=== PATIENT | male | born 1940 | race Caucasian/White ===

== ENCOUNTER → 2025-02-15 09:41 | Outpatient (REF) | payer MEDICARE, OTHER, SELFPAY ==
[2025-02-15 11:42] LABS: Hemoglobin 8.6 g/dL (13.0-18.0); Mean Corp Hgb Conc. 30.7 g/dL (33.0-37.0); Mean Corpuscular Hgb 31.7 pg (27.0-31.0); Mean Corpuscular Volume 103.3 fL (80.0-94.0); Platelet Count 127 10^3/uL (130-400); Red Blood Cell Count 2.71 10^6/uL (4.70-6.10); Red Cell Dist. Width 16.3 % (11.5-14.5); White Blood Cell Count 4.4 10^3/uL (4.8-10.8)
[2025-02-15 13:11] LABS: TSH Reflex To Free T4 0.78 uIU/ml (0.47-4.68)
[2025-02-15 13:47] LABS: Absolute Neutrophils -Man Diff 2.3 10^3/uL (1.4-6.5); Band Neutrophils 0 % (0-3); Eosinophils 1 % (0-6); Lymphocytes 29 % (20-51); Monocytes 17 % (2-9); Normal RBC Morphology Yes; Platelets Checked Yes; Segmented Neutrophils 54 % (42-75); Total Cells Counted 100
== END ==
LOC: REG 09:41
PROVIDERS: ATTENDING PHYSICIAN Student in an Organized Health Care Education/Training Program
DX: R06.09 Other forms of dyspnea (principal); I48.0 Paroxysmal atrial fibrillation
CPT/HCPCS: 36415; 84443; 85025

== ENCOUNTER → 2025-02-18 11:30 | Outpatient (REF) | payer MEDICARE, OTHER, SELFPAY ==
[2025-02-18 12:24] LABS: Hematocrit 28.2 % (39.0-52.0); Hemoglobin 8.7 g/dL (13.0-18.0); Mean Corp Hgb Conc. 30.9 g/dL (33.0-37.0); Mean Corpuscular Hgb 31.8 pg (27.0-31.0); Mean Corpuscular Volume 102.9 fL (80.0-94.0); Mean Platelet Volume 11.1 fL (7.4-10.4); Platelet Count 125 10^3/uL (130-400); Red Blood Cell Count 2.74 10^6/uL (4.70-6.10); Red Cell Dist. Width 16.1 % (11.5-14.5)
[2025-02-18 12:38] LABS: Direct Bilirubin 0.1 mg/dl (0.0-0.4); Iron 39 ug/dl (49-181); LDH 349 U/L (120-246); Total Bilirubin 0.7 mg/dl (0.2-1.3)
[2025-02-18 12:47] LABS: Percent Saturation 8 % (20-50); Total Iron Binding Capacity 458 ug/dl (261-462)
[2025-02-18 13:11] LABS: Absolute Neutrophils -Man Diff 1.7 10^3/uL (1.4-6.5); Band Neutrophils 3 % (0-3); Eosinophils 1 % (0-6); Ferritin 59.4 ng/ml (17.9-464.0); Lymphocytes 38 % (20-51); Monocytes 18 % (2-9); Segmented Neutrophils 40 % (42-75)
[2025-02-18 13:12] LABS: Anisocytosis 1+; Normal RBC Morphology No; Platelets Checked Yes; Polychromasia Slight
[2025-02-18 13:13] LABS: Reticulocyte Count 2.1 % (0.4-2.8); Total Cells Counted 100
[2025-02-18 13:25] LABS: Vitamin B12 865 pg/ml (239-931)
[2025-02-20 00:03] LABS: Haptoglobin 153 mg/dL (30-200)
== END ==
LOC: REG 11:30
PROVIDERS: ATTENDING PHYSICIAN Student in an Organized Health Care Education/Training Program
DX: D53.9 Nutritional anemia, unspecified (principal); D61.818 Other pancytopenia
CPT/HCPCS: 36415; 82247; 82248; 82607; 82728; 83010; 83540; 83550; 83615; 85025; 85045

== ENCOUNTER → 2025-02-23 11:29 | Outpatient (REF) | payer MEDICARE, OTHER, SELFPAY ==
[2025-02-23 12:25] LABS: Hematocrit 27.5 % (39.0-52.0); Hemoglobin 8.6 g/dL (13.0-18.0); Mean Corp Hgb Conc. 31.3 g/dL (33.0-37.0); Mean Corpuscular Hgb 31.9 pg (27.0-31.0); Mean Corpuscular Volume 101.9 fL (80.0-94.0); Mean Platelet Volume 11.7 fL (7.4-10.4); Platelet Count 132 10^3/uL (130-400); Red Cell Dist. Width 15.9 % (11.5-14.5); White Blood Cell Count 4.4 10^3/uL (4.8-10.8)
[2025-02-23 13:01] LABS: Absolute Neutrophils -Man Diff 1.9 10^3/uL (1.4-6.5); Atypical Lymphocytes 5 %; Band Neutrophils 1 % (0-3); Eosinophils 2 % (0-6); Lymphocytes 30 % (20-51); Monocytes 19 % (2-9); Normal RBC Morphology Yes; Platelets Checked Yes; Segmented Neutrophils 43 % (42-75); Total Cells Counted 100
== END ==
LOC: REG 11:29
PROVIDERS: ATTENDING PHYSICIAN Internal Medicine; FAMILY PHYSICIAN Student in an Organized Health Care Education/Training Program
DX: D53.9 Nutritional anemia, unspecified (principal)
CPT/HCPCS: 36415; 85025

== ENCOUNTER 2025-03-02 06:20 | Day surgery (SDC) | payer MEDICARE, OTHER, SELFPAY | END 2025-03-02 15:29 | disposition home or self-care (01) | LOC: GI 06:20 | PROVIDERS: ATTENDING PHYSICIAN Internal Medicine Gastroenterology | DX: D50.0 Iron deficiency anemia secondary to blood loss (chronic) (principal); K64.0 First degree hemorrhoids; K62.89 Other specified diseases of anus and rectum; K31.7 Polyp of stomach and duodenum; K31.89 Other diseases of stomach and duodenum; R13.10 Dysphagia, unspecified | CPT/HCPCS: 43239; 45378; 88305; 88342 ==

== ENCOUNTER 2025-03-04 07:20 | Outpatient (RCR) | payer MEDICARE, OTHER, SELFPAY ==
[2025-03-04 07:45] VITALS: BP 102/61
[2025-03-04] MEDS: INJECTAFER 265 MG IV (07:56)
[2025-03-04 08:33] VITALS: BP 95/55
== END 2025-03-05 23:59 | disposition home or self-care (01) ==
LOC: OID 07:20
PROVIDERS: ATTENDING PHYSICIAN Internal Medicine
DX: D50.0 Iron deficiency anemia secondary to blood loss (chronic) (principal); R06.02 Shortness of breath; Z79.01 Long term (current) use of anticoagulants
CPT/HCPCS: 96365; J1439

== ENCOUNTER 2025-03-11 08:52 | Outpatient (RCR) | payer MEDICARE, OTHER, SELFPAY ==
[2025-03-11] MEDS: INJECTAFER 265 MG IV (09:27)
[2025-03-11 09:36] VITALS: BP 140/79
[2025-03-11 10:30] VITALS: BP 160/77
== END 2025-03-14 10:12 | disposition home or self-care (01) ==
LOC: OID 08:52
PROVIDERS: ATTENDING PHYSICIAN Internal Medicine
DX: D50.0 Iron deficiency anemia secondary to blood loss (chronic) (principal); Z79.01 Long term (current) use of anticoagulants
CPT/HCPCS: 96365; J1439

== ENCOUNTER → 2025-03-16 09:13 | Outpatient (REF) | payer MEDICARE, OTHER, SELFPAY ==
[2025-03-16 11:33] LABS: Hematocrit 30.1 % (39.0-52.0); Hemoglobin 9.1 g/dL (13.0-18.0); Mean Corp Hgb Conc. 30.2 g/dL (33.0-37.0); Mean Corpuscular Hgb 31.5 pg (27.0-31.0); Mean Corpuscular Volume 104.2 fL (80.0-94.0); Mean Platelet Volume 11.5 fL (7.4-10.4); Platelet Count 146 10^3/uL (130-400); Red Blood Cell Count 2.89 10^6/uL (4.70-6.10); Red Cell Dist. Width 21.5 % (11.5-14.5); White Blood Cell Count 3.3 10^3/uL (4.8-10.8)
[2025-03-16 11:35] LABS: Absolute Neutrophils -Man Diff 1.6 10^3/uL (1.4-6.5); Band Neutrophils 0 % (0-3); Lymphocytes 33 % (20-51); Monocytes 16 % (2-9); Platelets Checked Yes; Segmented Neutrophils 51 % (42-75)
[2025-03-16 11:38] LABS: Anisocytosis 1+; Hypochromasia 1+; Normal RBC Morphology No; Total Cells Counted 100
[2025-03-16 14:05] LABS: Albumin 3.7 g/dl (3.5-5.0); Blood Urea Nitrogen 13 mg/dl (9-20); Calcium 8.5 mg/dl (8.4-10.2); Carbon Dioxide 25 mmol/L (22-30); Chloride 111 mmol/L (98-107); Glucose 85 mg/dl (70-99); Phosphorus 2.1 mg/dl (2.5-4.5); Potassium 4.6 mmol/L (3.5-5.1); Sodium 141 mmol/L (135-145); eGFR 54.85
== END ==
LOC: REG 09:13
PROVIDERS: ATTENDING PHYSICIAN Student in an Organized Health Care Education/Training Program; OTHER PHYSICIAN Internal Medicine Cardiovascular Disease; OTHER PHYSICIAN Nuclear Medicine Nuclear Cardiology
DX: D64.9 Anemia, unspecified (principal)
CPT/HCPCS: 36415; 80069; 85025

== ENCOUNTER → 2025-04-06 07:16 | Outpatient (REF) | payer MEDICARE, OTHER, SELFPAY ==
[2025-04-06 08:10] LABS: Hematocrit 37.2 % (39.0-52.0); Hemoglobin 11.7 g/dL (13.0-18.0); Mean Corp Hgb Conc. 31.5 g/dL (33.0-37.0); Mean Corpuscular Volume 105.1 fL (80.0-94.0); Platelet Count 105 10^3/uL (130-400); Red Cell Dist. Width 19.9 % (11.5-14.5)
[2025-04-06 08:36] LABS: Iron 69 ug/dl (49-181)
[2025-04-06 08:45] LABS: Total Iron Binding Capacity 365 ug/dl (261-462)
[2025-04-06 09:09] LABS: Ferritin 361.0 ng/ml (17.9-464.0)
[2025-04-06 09:20] LABS: Absolute Neutrophils -Man Diff 1.8 10^3/uL (1.4-6.5); Normal RBC Morphology Yes; Platelets Checked Yes; Total Cells Counted 100
== END ==
LOC: REG 07:16
PROVIDERS: ATTENDING PHYSICIAN Student in an Organized Health Care Education/Training Program
DX: D50.0 Iron deficiency anemia secondary to blood loss (chronic) (principal)
CPT/HCPCS: 36415; 82728; 83540; 83550; 85025

== ENCOUNTER → 2025-04-07 11:23 | Outpatient (REF) | payer MEDICARE, OTHER, SELFPAY | LOC: HWRAD 11:23 | PROVIDERS: ATTENDING PHYSICIAN Student in an Organized Health Care Education/Training Program | DX: R04.2 Hemoptysis (principal) | CPT/HCPCS: 71250 ==

== ENCOUNTER 2025-04-25 06:15 | Day surgery (SDC) | payer MEDICARE, OTHER, SELFPAY ==
--- NOTE | 2025-04-22 15:20 | PTCARENOTE ---
Device information found in recent office visit from October of this year scanned. Confirmed with Dr. Ugalde that this is sufficient information for his procedure friday.
[2025-04-25] VITALS (8 sets, daily range): BP systolic 105–154; BP diastolic 65–94; BMI 21.4
[2025-04-25 14:40] LABS: C-Reactive Protein < 5.00 mg/L (0.0-10.00)
[2025-04-25 16:52] LABS: Urine Red Blood Cell 0-2 /HPF (0-2); Urine White Cell 0-2 /HPF (0-5)
== END 2025-04-25 15:28 | disposition home or self-care (01) ==
LOC: SDS 06:15
PROVIDERS: ATTENDING PHYSICIAN Internal Medicine
DX: R04.2 Hemoptysis (principal); R91.8 Other nonspecific abnormal finding of lung field
CPT/HCPCS: 31624; 81015; 83516; 86038; 86140; 86430; 87070; 87102; 87116; 87205

== ENCOUNTER → 2025-05-03 16:41 | Outpatient (REF) | payer MEDICARE, OTHER, SELFPAY ==
[2025-05-03 17:36] LABS: Iron 118 ug/dl (49-181)
[2025-05-03 17:45] LABS: Hematocrit 37.8 % (39.0-52.0); Hemoglobin 11.8 g/dL (13.0-18.0); Mean Corp Hgb Conc. 31.2 g/dL (33.0-37.0); Mean Corpuscular Volume 104.1 fL (80.0-94.0); Platelet Count 107 10^3/uL (130-400); Red Cell Dist. Width 17.9 % (11.5-14.5)
[2025-05-03 17:46] LABS: Total Iron Binding Capacity 361 ug/dl (261-462)
[2025-05-03 17:56] LABS: Absolute Neutrophils -Man Diff 1.1 10^3/uL (1.4-6.5); Normal RBC Morphology No; Platelets Checked Yes
[2025-05-03 17:57] LABS: Anisocytosis 1+; Macrocytosis 1+; Microcytosis Slight
[2025-05-03 17:58] LABS: Ovalocytes Slight
[2025-05-03 17:59] LABS: Total Cells Counted 100
[2025-05-03 18:12] LABS: Ferritin 306.0 ng/ml (17.9-464.0)
== END ==
LOC: REG 16:41
PROVIDERS: ATTENDING PHYSICIAN Student in an Organized Health Care Education/Training Program
DX: R42 Dizziness and giddiness (principal); Z86.39 Personal history of other endocrine, nutritional and metabolic disease
CPT/HCPCS: 36415; 82728; 83540; 83550; 85025

== ENCOUNTER → 2025-05-23 13:57 | Outpatient (REF) | payer MEDICARE, OTHER, SELFPAY ==
[2025-05-23 14:38] LABS: Hematocrit 36.7 % (39.0-52.0); Hemoglobin 11.6 g/dL (13.0-18.0); Mean Corp Hgb Conc. 31.6 g/dL (33.0-37.0); Mean Corpuscular Volume 105.2 fL (80.0-94.0); Nucleated Red Blood Cells % 0 % (-); Platelet Count 102 10^3/uL (130-400); Red Cell Dist. Width 17.5 % (11.5-14.5)
[2025-05-23 16:09] LABS: Folate 4.9 ng/ml (2.76-20); Vitamin B12 878 pg/ml (239-931)
== END ==
LOC: REG 13:57
PROVIDERS: ATTENDING PHYSICIAN Internal Medicine Hematology & Oncology
DX: D64.9 Anemia, unspecified (principal)
CPT/HCPCS: 36415; 82607; 82746; 82784; 83521; 84155; 84165; 85025; 86334

== ENCOUNTER → 2025-05-25 09:16 | Outpatient (REF) | payer MEDICARE, OTHER, SELFPAY | LOC: HWRAD 09:16 | PROVIDERS: ATTENDING PHYSICIAN Internal Medicine; FAMILY PHYSICIAN Student in an Organized Health Care Education/Training Program | DX: J18.9 Pneumonia, unspecified organism (principal) | CPT/HCPCS: 71250 ==

== ENCOUNTER → 2025-06-04 07:18 | Outpatient (REF) | payer MEDICARE, OTHER, SELFPAY ==
[2025-06-04 08:35] LABS: Hematocrit 39.1 % (39.0-52.0); Hemoglobin 12.4 g/dL (13.0-18.0); Mean Corp Hgb Conc. 31.7 g/dL (33.0-37.0); Mean Corpuscular Volume 104.8 fL (80.0-94.0); Platelet Count 102 10^3/uL (130-400); Red Cell Dist. Width 17.4 % (11.5-14.5)
[2025-06-04 11:37] LABS: Absolute Neutrophils -Man Diff 0.6 10^3/uL (1.4-6.5); Platelets Checked Yes
[2025-06-04 11:39] LABS: Normal RBC Morphology No
[2025-06-04 11:40] LABS: Anisocytosis Slight; Macrocytosis Slight; Ovalocytes Slight; Total Cells Counted 100
[2025-06-07 16:27] LABS: Lyme Ab Western Blot IgG Negative (Negative); Lyme Ab Western Blot IgM Negative (Negative)
== END ==
LOC: REG 07:18
PROVIDERS: ATTENDING PHYSICIAN Student in an Organized Health Care Education/Training Program
DX: R53.83 Other fatigue (principal)
CPT/HCPCS: 36415; 85025; 86617

== ENCOUNTER → 2025-06-10 06:50 | Outpatient (REF) | payer MEDICARE, OTHER, SELFPAY ==
[2025-06-10 07:25] VITALS: BP 160/88; BP_SYST 70
[2025-06-10 07:31] LABS: INR 1.22; PT 15.9 Sec (11.4-14.6)
[2025-06-10] MEDS: ATIVAN 0.5 MG PO (07:52)
[2025-06-10 07:58] LABS: Hematocrit 38.5 % (39.0-52.0); Hemoglobin 12.5 g/dL (13.0-18.0); Mean Corp Hgb Conc. 32.5 g/dL (33.0-37.0); Mean Corpuscular Volume 105.2 fL (80.0-94.0); Nucleated Red Blood Cells % 0 % (-); Red Cell Dist. Width 17.2 % (11.5-14.5)
[2025-06-10 08:57] VITALS: BP 168/94
[2025-06-10 09:11] LABS: Platelet Count 96 10^3/uL (130-400)
== END ==
LOC: RADI 06:50
PROVIDERS: ATTENDING PHYSICIAN Internal Medicine Hematology & Oncology; FAMILY PHYSICIAN Student in an Organized Health Care Education/Training Program; REFERRING PHYSICIAN Physician Assistant
DX: D61.818 Other pancytopenia (principal)
CPT/HCPCS: 36415; 38222; 77012; 85025; 85610; 88305; 88311; 88312; 88313

== ENCOUNTER → 2025-07-12 11:06 | Outpatient (REF) | payer MEDICARE, OTHER, SELFPAY ==
[2025-07-12 12:02] LABS: Hematocrit 41.1 % (39.0-52.0); Hemoglobin 13.4 g/dL (13.0-18.0); Mean Corp Hgb Conc. 32.6 g/dL (33.0-37.0); Mean Corpuscular Volume 103.8 fL (80.0-94.0); Nucleated Red Blood Cells % 0 % (-); Platelet Count 114 10^3/uL (130-400); Red Cell Dist. Width 16.4 % (11.5-14.5)
[2025-07-12 12:58] LABS: Hepatitis B Surface Antigen Negative (Negative)
[2025-07-12 13:16] LABS: Hepatitis C Antibody Negative (Negative)
[2025-07-13 21:02] LABS: EBV-EA (D) Ab IgG 139.0 U/mL (<=8.9); EBV-NA IgG 197.0 U/mL (<=17.9); EBV-VCA IgG Antibodies >750.0 U/mL (<=17.9); EBV-VCA IgM Antibodies <10.0 U/mL (<=35.9)
== END ==
LOC: REG 11:06
PROVIDERS: ATTENDING PHYSICIAN Student in an Organized Health Care Education/Training Program
DX: D61.818 Other pancytopenia (principal)
CPT/HCPCS: 36415; 85025; 86663; 86664; 86665; 86704; 86706; 86803; 87340; 87389

== ENCOUNTER → 2025-07-22 09:25 | Outpatient (REF) | payer MEDICARE, OTHER, SELFPAY | LOC: HWRAD 09:25 | PROVIDERS: ATTENDING PHYSICIAN Student in an Organized Health Care Education/Training Program; FAMILY PHYSICIAN Student in an Organized Health Care Education/Training Program | DX: E04.9 Nontoxic goiter, unspecified (principal) | CPT/HCPCS: 76536 ==

== ENCOUNTER 2025-07-28 07:41 | Outpatient (RCR) | payer MEDICARE, OTHER, SELFPAY | END 2025-07-28 23:59 | disposition home or self-care (01) | LOC: RST 07:41 | PROVIDERS: ATTENDING PHYSICIAN Student in an Organized Health Care Education/Training Program | DX: J38.7 Other diseases of larynx (principal); R49.0 Dysphonia; E04.9 Nontoxic goiter, unspecified; Z98.890 Other specified postprocedural states | CPT/HCPCS: 92507; 92524 ==

== ENCOUNTER 2025-08-10 06:59 | Outpatient (RCR) | payer MEDICARE, OTHER, SELFPAY | END 2025-08-10 23:59 | disposition home or self-care (01) | LOC: RST 06:59 | PROVIDERS: ATTENDING PHYSICIAN Student in an Organized Health Care Education/Training Program | DX: J38.7 Other diseases of larynx (principal); R49.0 Dysphonia; E04.9 Nontoxic goiter, unspecified; Z98.890 Other specified postprocedural states | CPT/HCPCS: 92507 ==

== ENCOUNTER → 2025-08-31 07:32 | Outpatient (REF) | payer MEDICARE, OTHER, SELFPAY ==
[2025-08-31 07:40] VITALS: BP 162/87; BP_SYST 64
[2025-08-31 08:25] VITALS: BP 162/87
== END ==
LOC: RADI 07:32
PROVIDERS: ATTENDING PHYSICIAN Student in an Organized Health Care Education/Training Program; FAMILY PHYSICIAN Student in an Organized Health Care Education/Training Program
DX: E04.1 Nontoxic single thyroid nodule (principal)
CPT/HCPCS: 10005; 88173

== ENCOUNTER → 2025-09-16 06:35 | Outpatient (REF) | payer MEDICARE, OTHER, SELFPAY ==
[2025-09-16 07:36] LABS: Hematocrit 40.1 % (39.0-52.0); Hemoglobin 12.6 g/dL (13.0-18.0); Mean Corp Hgb Conc. 31.4 g/dL (33.0-37.0); Mean Corpuscular Volume 111.1 fL (80.0-94.0); Platelet Count 152 10^3/uL (130-400); Red Cell Dist. Width 15.4 % (11.5-14.5)
[2025-09-16 07:56] LABS: Iron 97 ug/dl (49-181)
[2025-09-16 08:06] LABS: Absolute Neutrophils -Man Diff 1.3 10^3/uL (1.4-6.5); Normal RBC Morphology Yes; Platelets Checked Yes; Total Cells Counted 100
[2025-09-16 08:32] LABS: Ferritin 137.0 ng/ml (17.9-464.0)
== END ==
LOC: REG 06:35
PROVIDERS: ATTENDING PHYSICIAN Internal Medicine Gastroenterology; FAMILY PHYSICIAN Student in an Organized Health Care Education/Training Program
DX: D50.0 Iron deficiency anemia secondary to blood loss (chronic) (principal)
CPT/HCPCS: 36415; 82728; 83540; 85025

== ENCOUNTER 2025-09-27 06:53 | Outpatient (RCR) | payer MEDICARE, OTHER, SELFPAY | END 2025-09-27 23:59 | disposition home or self-care (01) | LOC: RST 06:53 | PROVIDERS: ATTENDING PHYSICIAN Student in an Organized Health Care Education/Training Program | DX: J38.7 Other diseases of larynx (principal); R49.0 Dysphonia; E04.9 Nontoxic goiter, unspecified; Z98.890 Other specified postprocedural states | CPT/HCPCS: 92507 ==